=== PATIENT | male | born 1990 | race Caucasian/White ===

== ENCOUNTER 2021-05-13 01:49 | Emergency (ER) | payer OTHER ==
[~2021-05-13 01:49] MED LIST: BASAGLAR K100 UNIT/1 SC; HUMALOG100 UNIT/1 SC; PHENERGAN 25 MG25 M1 PO; ZOFRAN4 MG PO
[2021-05-13] MEDS ORDERED: PERCOCET 5/325 T1 EA PO ×2 (04:40)
[2021-05-13] MEDS ORDERED: HYDROCODON-ACE1 EAC2 PO (21:17)
== END 2021-05-13 05:10 | disposition home or self-care (01) ==
LOC: ER1 01:49
DX: S82.034A Nondisplaced transverse fracture of right patella, initial encounter for closed fracture (principal); E10.9 Type 1 diabetes mellitus without complications; V00.131A Fall from skateboard, initial encounter; Y92.009 Unspecified place in unspecified non-institutional (private) residence as the place of occurrence of the external cause
CPT/HCPCS: 29530; 73564; 73590; 99283

== ENCOUNTER 2021-05-13 19:12 | Emergency (ER) | payer OTHER ==
[~2021-05-13 19:12] MED LIST changes: +PERCOCET 5/325 T1 EA PO
[2021-05-13] MEDS ORDERED: HYDROCODON-ACE1 EAC2 PO (21:17)
== END 2021-05-13 21:44 | disposition home or self-care (01) ==
LOC: ER1 19:12
DX: M25.061 Hemarthrosis, right knee (principal); M65.88 Other synovitis and tenosynovitis, other site; E11.9 Type 2 diabetes mellitus without complications; Z79.4 Long term (current) use of insulin; Z88.0 Allergy status to penicillin
CPT/HCPCS: 20611; 96372; 96374; 99283; J2270; J2405